=== PATIENT | female | born 1975 | race Caucasian/White ===

== ENCOUNTER 2019-01-30 09:03 | Day surgery (SDC) | payer BC ==
--- NOTE | 2019-01-29 09:01 | HP ---
DATE: 01/30/19 ANTICIPATED PROCEDURE: Cholecystectomy. HISTORY OF PRESENT ILLNESS: Patient has upper abdominal pain. US positive. Seen and examined. Procedure discussed in detail. Wished to proceed. PAST MEDICAL HISTORY: ALLERGIES: NONE. CURRENT MEDICATIONS: Iron supplement, control patch. SURGERIES: , arthroscopy. SOCIAL HISTORY: Negative. REVIEW OF SYSTEMS: Alzheimer's, hypertension, anemia. PHYSICAL EXAMINATION: Vital signs normal. CHEST: Clear. COR: Regular. ABDOMEN: Satisfactory. IMPRESSION: 1. SYMPTOMATIC CHOLELITHIASIS. PLAN: Laparoscopic cholecystectomy.
[~2019-01-30 09:03] MED LIST: Lactated Ringers 1,000 ML IV ONE; Sensorcaine 0.25% 10 ML ONE
[2019-01-30] MEDS ORDERED: Lactated Ringers 1,000 ML IV SCH (09:30)
[2019-01-30] MEDS ORDERED: Lactated Ringers 1,000 ML IV ONE (09:35)
[2019-01-30] MEDS ORDERED: MEFOXIN 2 GM PREMIX** 2 GM/50 ML ML IV SCH (10:00)
[2019-01-30] MEDS ORDERED: Zemuron 100 MG/10 ML ONE (11:33)
[2019-01-30] MEDS ORDERED: Versed 2 MG/2 ML Injection ONE (11:33)
[2019-01-30] MEDS ORDERED: SUBLIMAZE 250 MCG/5 ML ONE (11:33)
[2019-01-30] MEDS ORDERED: DIPRIVAN 200 MG/20 ML IV ONE (11:33)
[2019-01-30] MEDS ORDERED: Decadron 4 MG INJ ONE (11:47)
[2019-01-30] MEDS ORDERED: TORAdol 30 mg Injection ONE (11:47)
[2019-01-30] MEDS ORDERED: Zofran 4 MG/2 ML VIAL ONE ×3 (11:47→13:28)
[2019-01-30] MEDS ORDERED: BRIDION 200MG/2ML IV ONE (11:47)
[2019-01-30] MEDS ORDERED: PHENYLEPHRINE HCL ONE (12:03)
[2019-01-30] MEDS ORDERED: SUBLIMAZE 100 MCG/2 ML ONE ×2 (12:28→12:50)
[2019-01-30] MEDS ORDERED: Compazine 10 MG/2 ML ONE (13:03)
[2019-01-30 14:05] VITALS: O2SAT 100
[2019-01-30 14:17] VITALS: BP 167/87; PULSE 67
--- NOTE | 2019-01-31 10:40 | OP ---
SURGERY DATE: 01/30/19 SURGERY TIME: 1133 PREOPERATIVE DIAGNOSIS: 1. SYMPTOMATIC CHOLELITHIASIS. POSTOPERATIVE DIAGNOSIS: 1. SYMPTOMATIC CHOLELITHIASIS. PROCEDURE: 1. Laparoscopic cholecystectomy. SURGEON: Daryn Pena M.D. ANESTHESIA: General endotracheal tube. COMPLICATIONS: None. CONDITION: Stable. INDICATION: Patient with upper abdominal pain. US positive. Seen and examined. Procedure discussed in detail. OPERATIVE PROCEDURE: Taken to surgery. General anesthetic. Routine prep and drape. Veress needle inserted. Opened to a pressure of 1. Insufflated to a pressure of 14. Four 5's. Good visualization. Cystic duct defined. Cystic artery defined. Both structures triply Ligaclipped. Clips totally cross wall approximated. Gallbladder rolled out of gallbladder fossa. Gallbladder delivered through the upper abdominal port. There was a residual stone. Was placed in a condom bag and removed. Field was generously irrigated. It was dry. Hole closure device was used at the epigastric port. CO2 was exsufflated. Skin closed 4-0 Vicryl and Steri-strips. Patient tolerated the procedure satisfactory.
== END 2019-01-30 14:26 | disposition home or self-care (01) ==
LOC: SDC 09:03
PROVIDERS: ATTEND Surgery
DX: K80.10 Calculus of gallbladder with chronic cholecystitis without obstruction (principal)
CPT/HCPCS: 84703; 88304; J0694; J1100; J1885; J2250; J2370; J2405; J2704; J3010

== ENCOUNTER 2020-02-03 15:49 | Emergency (ER) | payer BC, OTHER ==
[2020-02-03] MEDS ORDERED: Sodium Chloride 0.9% 1000 ML 1,000 ML IV STA (16:08)
[2020-02-03] MEDS ORDERED: TORAdol 30 mg Injection IV ONE (16:08)
[2020-02-03] MEDS ORDERED: TORAdol 30 mg Injection ONE (16:09)
[2020-02-03] MEDS ORDERED: Zofran 4 MG/2 ML VIAL IV ONE (16:09)
[2020-02-03] MEDS ORDERED: Zofran 4 MG/2 ML VIAL ONE (16:09)
[2020-02-03] MEDS ORDERED: Sodium Chloride 0.9% 1000 ML 1,000 ML ONE (16:10)
[2020-02-03 16:23] LABS: Absolute Neutrophil Ct (ANC) 7.03 (1.4-6.9); BASOPHIL % 0.3 % (0.0-0.4); Basophil (Absolute #) 0.03 (0-0.4); Eosinophil % 1.2 % (0.00-5.0); Eosinophil (Absolute #) 0.13 (0-0.5); Hematocrit 39.7 % (35-47); Hemoglobin 12.7 gm/dl (12.0-16.0); Lymphocyte (Absolute #) 3.42 (1.0-4.6); Lymphocytes % 30.5 % (24.0-44.0); Mean Cell Volume 90.2 fl (78-100); Mean Corpuscular Hemoglobin 28.9 pg (26-32); Monocyte (Absolute #) 0.62 (0.0-1.3); Monocytes % 5.5 % (0.0-12.0); Neutrophil % 62.5 % (36.0-66.0); Platelet Count 296 K/mm3 (150-450); Red Cell Distribution Width 12.5 % (11.5-14.0); White Blood Count 11.2 K/mm3 (4.0-10.5)
[2020-02-03 16:30] LABS: Appearance CLEAR (CLEAR); Bilirubin NEGATIVE (NEGATIVE); Blood MODERATE Ery/ul (0-5); Glucose NEGATIVE (NEGATIVE); Ketones NEGATIVE (NEGATIVE); Leukocyte Esterase NEGATIVE (NEGATIVE); Nitrite NEGATIVE (NEGATIVE); Protein,Urine Dip NEGATIVE (Negative); Specific Gravity 1.017 (1.005-1.025); Urobilinogen NEGATIVE mg/dL (0-1)
[2020-02-03 16:35] LABS: ALBUMIN 4.5 g/dL (3.5-5.0); ALKALINE PHOSPHATASE 117 U/L (38-126); ANION GAP 12.5 MEQ/L (5-15); BLOOD UREA NITROGEN 15 mg/dL (7-17); CHLORIDE 100 mmol/L (98-107); Calcium 9.2 mg/dL (8.4-10.2); Carbon Dioxide 27 mmol/L (22-30); Creatinine 1 0.82 mg/dL (0.52-1.04); EST GLOMERULAR FILTRATION RATE > 60.0 ML/MIN; Glucose 114 mg/dL (74-106); LIPASE 83 U/L (23-300); SGOT/AST 43 U/L (14-36); SGPT/ALT 32 U/L (0-35); SODIUM 136 mmol/L (137-145); Total Protein 8.2 g/dL (6.3-8.2)
[2020-02-03 16:50] VITALS: O2SAT 99
--- NOTE | 2020-02-03 17:26 | ERPHSYRPT ---
- History of Present Illness Time Seen by Provider: 02/03/20 16:00 Historian: patient Exam Limitations: no limitations Patient Subjective Stated Complaint: Pain to the right flank and right lower abdomen for the past 4-5 days, pain more severe today Triage Nursing Assessment: Pt was brought to the ER by her friend, pain in the right flank and radiates to the right lower abdomen, rates pain 10/10, pulses normal, still has appendix, no edema, denies N&V, hypertensive, lungs clear, bowel sounds heard in all 4 Physician History: Patient is a 45-year-old female presents to our ED with complaints of right flank pain that started approximately 4 to 5 days ago. Pain has been getting progressively worse. Pain is primarily at her right flank and radiates to her right lower quadrant. Pain rated 10 out of 10. No associated nausea or vomiting. No fevers. No vaginal discharge. No trauma. Symptoms are moderate to severe in intensity per patient. Patient declined morphine as she stated that her symptoms "are not that bad". Patient is otherwise healthy. She voices no other complaints or concerns at this time. Timing/Duration: day(s) (4 to 5 days) Activities at Onset: none Quality: aching Abdominal Pain Onset Location: flank Pain Radiation: RLQ Severity of Pain-Max: severe Severity of Pain-Current: moderate Modifying Factors: Improves With: nothing Associated Symptoms: loss of appetite, No chest pain, No diarrhea, No fever/chills, No neck pain, No shortness of breath, No syncope, No vomiting Previous symptoms: no prior history Allergies/Adverse Reactions: No Known Drug Allergies Allergy (Verified 02/03/20 16:09) Home Medications: No Reportable Medications [No Reported Medications] 02/03/20 [History] Travel Risk - International Travel Have you traveled outside of the country in past 3 weeks: No - Coronavirus Screening Are you exhibiting any of the following symptoms?: No Close contact with a COVID-19 positive Pt in past 14-21 Days: No - Review of Systems Constitutional: No Symptoms, No Fever, No Chills Eyes: No Symptoms Ears, Nose, & Throat: No Symptoms Respiratory: No Symptoms, No Cough, No Dyspnea Cardiac: No Symptoms, No Chest Pain, No Edema, No Syncope Abdominal/Gastrointestinal: No Symptoms, No Abdominal Pain, No Nausea, No Vomiting, No Diarrhea Genitourinary Symptoms: No Symptoms, No Dysuria Musculoskeletal: No Symptoms, No Back Pain, No Neck Pain Skin: No Symptoms, No Rash Neurological: No Symptoms, No Dizziness, No Focal Weakness, No Sensory Changes Psychological: No Symptoms Endocrine: No Symptoms Hematologic/Lymphatic: No Symptoms Immunological/Allergic: No Symptoms All Other Systems: Reviewed and Negative - Past Medical History Pertinent Past Medical History: Yes Neurological History: No Pertinent History ENT History: No Pertinent History Cardiac History: No Pertinent History Respiratory History: No Pertinent History Endocrine Medical History: No Pertinent History Musculoskeletal History: Other GI Medical History: No Pertinent History History: No Pertinent History Psycho-Social History: No Pertinent History Female Reproductive Disorders: Abnormal Uterine Bleeding Other Medical History: hx of anemia - Past Surgical History Past Surgical History: Yes Neuro Surgical History: No Pertinent History Cardiac: No Pertinent History Respiratory: No Pertinent History Gastrointestinal: Cholecystectomy Genitourinary: No Pertinent History Musculoskeletal: Orthopedic Surgery, Other Female Surgical History: Section Other Surgical History: ablation - Social History Smoking Status: Never smoker Exposure to second hand smoke: No Drug Use: none Patient Lives Alone: No - Female History Hx Now: No - Nursing Vital Signs Nursing Vital Signs: Initial Vital Signs Temperature 97.9 F 02/03/20 15:55 Pulse Rate 60 02/03/20 15:55 Blood Pressure 167/85 02/03/20 15:55 O2 Sat by Pulse Oximetry 100 02/03/20 15:55 Pain Scale Pain Intensity 4 - Physical Exam General Appearance: no apparent distress, alert Eye Exam: PERRL/EOMI, eyes nml inspection Ears, Nose, Throat Exam: normal ENT inspection, pharynx normal, moist mucous membranes Neck Exam: normal inspection, non-tender, supple, full range of motion Respiratory Exam: normal breath sounds, lungs clear, No respiratory distress Cardiovascular Exam: regular rate/rhythm, normal heart sounds Gastrointestinal/Abdomen Exam: soft, other (Mild right CVA. No abdominal tenderness. No guarding.), No tenderness, No mass, No ecchymosis, No rebound, No organomegaly Pelvic Exam: not done Back Exam: normal inspection, normal range of motion, No CVA tenderness, No vertebral tenderness Extremity Exam: normal inspection, normal range of motion, pelvis stable Neurologic Exam: alert, oriented x 3, cooperative, normal mood/affect, nml cerebellar function, sensation nml, No motor deficits Skin Exam: normal color, warm, dry Lymphatic Exam: No adenopathy SpO2 Interpretation: normal SpO2: 99 O2 Delivery: Room Air - Course Nursing assessment & vital signs reviewed: Yes - CT Exams Abdomen/Pelvis CT Interpretation: Tele-radiologist Report (No acute intra-abdominal pelvic process. No appendicitis. 1.5 x 1.2 cm oval-shaped low-attenuation density within the central aspect of the upper uterine segment which may represent retained mucus or blood within the upper portion of the endometrial canal. Mild colonic fecal stasis. Duplicated r) Ordered Tests: Active Orders 24 hr Category Date Time Status IV Insertion STAT Care 02/03/20 16:06 Active ABDOMEN AND PELVIS W CONTRAST [CT] Stat Exams 02/03/20 16:09 Completed CBC W DIFF Stat Lab 02/03/20 16:00 Completed CMP Stat Lab 02/03/20 16:00 Completed LIPASE Stat Lab 02/03/20 16:00 Completed UA W/RFX UR CULTURE Stat Lab 02/03/20 16:00 Completed Medication Summary Discontinued Medications Generic Name Dose Route Start Last Admin Trade Name Freq PRN Reason Stop Dose Admin Sodium Chloride 1,000 mls @ 999 mls/hr 02/03/20 16:08 02/03/20 17:21 Sodium Chloride 0.9% 1000 Ml IV 02/03/20 17:08 Infused .Q1H1M STA Infusion Sodium Chloride Confirm 02/03/20 16:10 Sodium Chloride 0.9% 1000 Ml Administered 02/03/20 16:11 Dose 1,000 mls @ ud .ROUTE .STK-MED ONE Ketorolac Tromethamine 30 mg 02/03/20 16:08 02/03/20 16:12 Toradol 30 Mg Injection IV 02/03/20 16:09 30 mg STAT ONE Administration Ketorolac Tromethamine Confirm 02/03/20 16:09 Toradol 30 Mg Injection Administered 02/03/20 16:10 Dose 30 mg .ROUTE .STK-MED ONE Ondansetron HCl 4 mg 02/03/20 16:09 02/03/20 16:12 Zofran 4 Mg/2 Ml Vial IV 02/03/20 16:10 4 mg STAT ONE Administration Ondansetron HCl Confirm 02/03/20 16:09 Zofran 4 Mg/2 Ml Vial Administered 02/03/20 16:10 Dose 4 mg .ROUTE .STK-[facility] ONE Lab/Rad Data: Laboratory Result Diagrams 02/03/20 16:00 02/03/20 16:00 Laboratory Results 02/03/20 02/03/20 02/03/20 Range/Units 16:00 16:00 16:00 WBC 11.2 H (4.0-10.5) K/mm3 RBC 4.40 (4.1-5.4) M/mm3 Hgb 12.7 (12.0-16.0) gm/dl Hct 39.7 (35-47) % MCV 90.2 (78-100) fl MCH 28.9 (26-32) pg MCHC 32.0 (32-36) g/dl RDW 12.5 (11.5-14.0) % Plt Count 296 (150-450) K/mm3 MPV 12.0 H (7.5-11.0) fl Gran % 62.5 (36.0-66.0) % Eos # (Auto) 0.13 (0-0.5) Absolute Lymphs (auto) 3.42 (1.0-4.6) Absolute Monos (auto) 0.62 (0.0-1.3) Lymphocytes % 30.5 (24.0-44.0) % Monocytes % 5.5 (0.0-12.0) % Eosinophils % 1.2 (0.00-5.0) % Basophils % 0.3 (0.0-0.4) % Absolute Granulocytes 7.03 H (1.4-6.9) Basophils # 0.03 (0-0.4) Sodium 136 L (137-145) mmol/L Potassium 4.0 (3.5-5.1) mmol/L Chloride 100 (98-107) mmol/L Carbon Dioxide 27 (22-30) mmol/L Anion Gap 12.5 (5-15) MEQ/L BUN 15 (7-17) mg/dL Creatinine 0.82 (0.52-1.04) mg/dL Estimated GFR > 60.0 ML/MIN Glucose 114 H (74-106) mg/dL Calcium 9.2 (8.4-10.2) mg/dL Total Bilirubin 0.50 (0.2-1.3) mg/dL AST 43 H (14-36) U/L ALT 32 (0-35) U/L Alkaline Phosphatase 117 (38-126) U/L Serum Total Protein 8.2 (6.3-8.2) g/dL Albumin 4.5 (3.5-5.0) g/dL Lipase 83 (23-300) U/L Urine Color YELLOW (YELLOW) Urine Appearance CLEAR (CLEAR) Urine pH 7.0 (5-6) Ur Specific [place] 1.017 (1.005-1.025) Urine Protein NEGATIVE (Negative) Urine Ketones NEGATIVE (NEGATIVE) Urine Blood MODERATE (0-5) Stephan/ul Urine Nitrite NEGATIVE (NEGATIVE) Urine Bilirubin NEGATIVE (NEGATIVE) Urine Urobilinogen NEGATIVE (0-1) mg/dL Ur Leukocyte Esterase NEGATIVE (NEGATIVE) Urine WBC (Auto) NONE (0-5) /HPF Urine RBC (Auto) NONE (0-2) /HPF U Epithel Cells (Auto) NONE (FEW) /HPF Urine Bacteria (Auto) NONE (NEGATIVE) /HPF Urine Culture Reflexed NO (NO) Urine Glucose NEGATIVE (NEGATIVE) mg/dL - Progress Progress: improved Progress Note: 02/03/20 18:04 Patient reassessed. Pain resolved. Patient will see Dr. Pierre of OB for further evaluation of the ovoid shaped fluid collection in the upper portion of the uterus. Patient advised of the fat-containing umbilical and abdominal wall hernia. Patient also advised to follow-up regarding her hematuria. No kidney stone was observed on the CAT scan. Dr. Aguilar observed the CAT scan there appears to be in excess stool burden along the ascending colon at the general location of patient's pain. It is possible that this may be causing an intestinal colic. Patient will try [id number] laxative to see if this resolves her symptoms. Patient voices no other questions or concerns at this time. She agrees to follow-up with Dr. Pierre and her primary care doctor within 48 hours for reevaluation. Patient declined pain prescription. 02/03/20 18:06 Counseled pt/family regarding: lab results, diagnosis, need for follow-up, rad results - Departure Departure Disposition: Home Clinical Impression: Abdominal pain, Abnormal collection of fluid in uterine cavity, Abdominal wall hernia, Periumbilical hernia, Hematuria Condition: Stable Critical Care Time: No Referrals: ROXANA [facility] [employer] [Primary Care Provider] - Additional Instructions: Discharge/Care Plan JENNIFER PAYNE was seen on 02/03/20 in the Emergency Room. The patient was counseled regarding Diagnosis,Lab results, Imaging studies, need for follow up and when to return to the Emergency Room. Prescriptions given: Discharge Note I have spoken with the patient and/or caregivers. I have explained the patient's condition, diagnosis and treatment plan based on the information available to me at this time. I have answered the patient's and/or caregiver's questions and addressed any concerns. The patient and/or caregivers have as good understanding of the patient's diagnosis, condition and treatment plan as can be expected at this point. The vital signs have been stable. The patient's condition is stable and appropriate for discharge from the emergency department. The patient will pursue further outpatient evaluation with the primary care physician or other designated or consulting physician as outlined in the discharge instructions. The patient and/or caregivers are agreeable to this plan of care and follow-up instructions have been explained in detail. The patient and/or caregivers have received these instruction. The patient/and or caregivers are aware that any significant change in condition or worsening of symptoms should prompt an immediate return to this or the closest emergency department or call 911.
--- NOTE | 2020-02-03 17:32 | XRAY ---
Exam: CT of the abdomen and pelvis with IV contrast from 02/03/2020. CTDI: 13.91 mGy Comparison: None. Indication: 45-year-old female with right lower quadrant abdominal pain that radiates to her back for the past 4-5 days. The patient gives a history of prior cholecystectomy and bilateral tubal ligation. Technique: Post-IV contrast axial images were obtained through the abdomen and pelvis during automated injection of 80 cc of Isovue-370 contrast material. Reconstructed coronal and sagittal images were created and reviewed. In addition, note some delay axial images through the abdomen and pelvis were obtained. No oral contrast was given. Findings: The visualized lung bases are clear. The liver and spleen appear of unremarkable size and uniform attenuation. No focal hepatic mass or intrahepatic biliary duct distention is seen. Surgical clips consistent with prior cholecystectomy are seen within the right upper quadrant. The pancreas reveals no significant abnormality. The adrenal glands are normal size and configuration. The kidneys appear of unremarkable size and shape. 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 The ureters may join proximal to the urinary bladder. There is no evidence of hydronephrosis or hydroureter on the right. Only a single definite left ureter is seen. No renal calculi or renal mass is seen. The abdominal aorta reveals no evidence of aneurysm or abnormal retroperitoneal lymphadenopathy. A minimal fat-containing umbilical hernia is seen on midline sagittal image #108 measuring 1.5 cm in craniocaudal dimension. No ventral bowel containing hernia is seen. I do note an upper midline anterior abdominal wall hernia containing fat density only. This measures about 3.5 cm in width and 1.5 cm in AP depth. No free intraperitoneal air is seen. A retrocecal appendix is seen which appears unremarkable. There is no evidence of appendicitis. Some scattered stool is seen throughout the colon. The bowel appears nonobstructed. I see no definite bowel wall thickening. Prominent metallic clips from prior bilateral tubal ligation are seen. The ovaries appear grossly unremarkable. The uterus is anteflexed and reveals a 1.2 cm x 1.5 cm oval-shaped fluid collection within the endometrium in the upper uterine segment which may represent mucus or a small amount of blood. The remainder of the uterus appears unremarkable. There is mild distention of the urinary bladder which appears unremarkable. No bladder stones are seen. No enlarged pelvic lymph nodes or free intraperitoneal fluid is seen. Small nonspecific lymph nodes are seen within each groin. There is a slight rotary convexity of the upper lumbar spine toward the right centered at L1-L2. The skeleton reveals no acute fracture or aggressive bone lesion. Small anterior vertebral endplate spurs are seen within the lower thoracic spine and lower lumbar spine. Impression: 1. I see no definite acute intra-abdominal or pelvic process. Specifically, I see no evidence of acute appendicitis within the right lower quadrant. 2. The patient is status post cholecystectomy and bilateral tubal ligation. The ovaries appear unremarkable. The uterus reveals a 1.5 cm x 1.2 cm oval-shaped low-attenuation density within the central aspect of the upper uterine segment which may represent retained mucus or blood within the upper portion of the endometrial canal. The remainder of the uterus is anteflexed and unremarkable. 3. 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
[2020-02-03 17:44] VITALS: PULSE 68
[2020-02-03 18:09] VITALS: BP 129/70
== END 2020-02-03 18:13 | disposition home or self-care (01) ==
LOC: ED 15:49
DX: R10.9 Unspecified abdominal pain (principal); R18.8 Other ascites; K43.9 Ventral hernia without obstruction or gangrene; K42.9 Umbilical hernia without obstruction or gangrene; R31.9 Hematuria, unspecified
CPT/HCPCS: 36000; 36415; 74177; 80053; 81001; 83690; 85025; 96360; 96374; 96375; 99284; J1885; J2405